=== PATIENT | female | born 1995 | race Caucasian/White ===

== ENCOUNTER 2020-02-18 11:40 | Inpatient (IN) | payer BC, OTHER ==
[2020-04-25] MEDS ORDERED: NS w/ Oxytocin 10 units 500 ML ONE (06:38)
[2020-04-25] MEDS ORDERED: HYDROcodone/Acetaminophen 5/325 mg Tablet PO PRN ×2 (06:41)
[2020-04-25] MEDS ORDERED: NS / Oxytocin 40 units/1000ml 1,000 ML IV PRN (06:41)
[2020-04-25] MEDS ORDERED: Diphenoxylate HCl/Atropine Tablet PO PRN ×2 (06:41)
[2020-04-25] MEDS ORDERED: hydrALAZINE 20 MG/ML VIAL SLOW IVP PRN (06:41)
[2020-04-25] MEDS ORDERED: Ibuprofen 800 MG TAB PO PRN (06:41)
[2020-04-25] MEDS ORDERED: Butorphanol Tartrate 1 MG/ML VIAL SLOW IVP PRN (06:41)
[2020-04-25] MEDS ORDERED: Misoprostol 200 MCG TAB PR PRN (06:41)
[2020-04-25] MEDS ORDERED: Ondansetron PF 4 MG/2 ML Vial IVP PRN ×2 (06:41→09:26)
[2020-04-25] MEDS ORDERED: Acetaminophen 500 MG TAB PO PRN (06:41)
[2020-04-25] MEDS ORDERED: Docusate 100 MG CAP PO PRN (06:41)
[2020-04-25] MEDS ORDERED: NS w/ Oxytocin 10 units 500 ML IV SCH (06:41)
[2020-04-25] MEDS ORDERED: Promethazine HCl 25 MG/ML VIAL IM PRN ×2 (06:41→09:26)
[2020-04-25] MEDS ORDERED: Lidocaine 1% (PF) 30 ML VIAL SC PRN (06:41)
[2020-04-25 06:42] VITALS: BMI 51.3
[2020-04-25] MEDS: Lactated Ringer's 1,000 ML IV SCH ×4 (06:50→22:56)
[2020-04-25 07:21] LABS: Hemoglobin 12.2 g/dL (12.0-16.0); Mean Corpuscular HGB CONC 34.3 g/dL (32.0-36.0); Mean Platelet Volume 8.7 fL (7.4-10.4); Platelet Count 213 thou/uL (130-400); RBC Distribution Width 12.3 % (11.5-14.5); White Blood Cell (WBC) Count 13.1 thou/uL (4.8-10.8)
[2020-04-25] MEDS: NS w/ Oxytocin 10 units 500 ML IV SCH (07:57)
[2020-04-25 08:01] LABS: HBSAg Index 0.13 S/CO (0-0.99); HIV (1/2) Antibody/Antigen Non-Reactive (NonReactive); HIV 1/2 INDEX 0.06 S/CO (<1.00); Hep B Surf Ag Non-Reactive S/CO (NonReactive); Syphilis Antibody Nonreactive (Nonreactive); Syphilis Antibody Index 0.04 S/CO (<1.00 Non-Reactive)
[2020-04-25] MEDS ORDERED: Fentanyl 4 mcg/Bup 0.1% Cadd 100 ML ONE ×3 (08:46→20:48)
[2020-04-25] MEDS ORDERED: Bupivacaine/Epinephrine 0.25% 30 ML VIAL ONE (09:17)
[2020-04-25] MEDS ORDERED: Lactated Ringer's 500 ML IV PRN (09:26)
[2020-04-25] MEDS ORDERED: diphenhydrAMINE 50 MG/ML VIAL IVP PRN (09:26)
[2020-04-25] MEDS ORDERED: EPHEDRINE 25 MG/5 ML SYRINGE SLOW IVP PRN (09:26)
[2020-04-25] MEDS ORDERED: Naloxone HCl 0.4 mg/ml Vial IVP PRN ×2 (09:26)
[2020-04-25] MEDS ORDERED: Acetaminophen 325 MG TAB PO PRN (09:26)
[2020-04-25] MEDS ORDERED: Communication Order-Pharmacy FS SCH (09:30)
[2020-04-25] MEDS: Fentanyl 4 mcg/Bupivacaine 0.1% Cassette 100 ML EPIDURAL SCH ×2 (15:02→20:56)
[2020-04-26] MEDS ORDERED: Fentanyl 4 mcg/Bup 0.1% Cadd 100 ML ONE (04:06)
[2020-04-26] MEDS: Fentanyl 4 mcg/Bupivacaine 0.1% Cassette 100 ML EPIDURAL SCH (04:09)
[2020-04-26] MEDS ORDERED: Zolpidem Tartrate 5 MG TAB PO PRN ×2 (05:17→05:28)
[2020-04-26] MEDS ORDERED: Benzocaine-Menthol 82.5 ML CAN TOP PRN (05:17)
[2020-04-26] MEDS ORDERED: Misoprostol 200 MCG TAB VAG PRN (05:17)
[2020-04-26] MEDS ORDERED: hydrALAZINE 20 MG/ML VIAL SLOW IVP PRN (05:17)
[2020-04-26] MEDS ORDERED: Bisacodyl 10 MG SUPP PR PRN (05:17)
[2020-04-26] MEDS ORDERED: Milk Of Magnesia 30 ML UDCUP PO PRN (05:17)
[2020-04-26] MEDS ORDERED: Ondansetron PF 4 MG/2 ML Vial IVP PRN (05:17)
[2020-04-26] MEDS ORDERED: Lanolin Ointment 7 GM TUBE TOP PRN (05:17)
[2020-04-26] MEDS ORDERED: Preparation H Ointment 28 GM TUBE PR PRN (05:17)
[2020-04-26] MEDS ORDERED: Acetaminophen/Codeine 30-300mg Tablet PO PRN ×2 (05:17→05:27)
[2020-04-26] MEDS ORDERED: diphenhydrAMINE 25 MG CAP PO PRN (05:17)
[2020-04-26] MEDS ORDERED: Naproxen 500 MG TAB PO PRN (05:22)
[2020-04-26] MEDS ORDERED: NS / Oxytocin 40 units/1000ml 1,000 ML IV SCH (05:30)
[2020-04-26] MEDS: Docusate Calcium (SURFAK) 240 MG CAP PO SCH ×2 (08:20→20:26)
[2020-04-26] MEDS: Prenatal Vitamin 1 TAB PO SCH (08:20)
[2020-04-26] MEDS ORDERED: Adacel (T-DAP) 0.5 ML SYRINGE IM ONE (09:00)
[2020-04-26] MEDS: Acetaminophen/Codeine 30-300mg Tablet PO PRN ×3 (10:19→22:30)
[2020-04-26] MEDS: NS w/ Oxytocin 10 units 500 ML IV SCH (10:30)
[2020-04-26] MEDS: Lactated Ringer's 1,000 ML IV SCH (10:30)
[2020-04-26] MEDS: Ferrous Sulfate 325 MG TAB PO SCH ×2 (10:30→16:22)
[2020-04-27] MEDS: Acetaminophen/Codeine 30-300mg Tablet PO PRN (05:12)
[2020-04-27 05:37] LABS: Hemoglobin 10.6 g/dL (12.0-16.0); Mean Corpuscular HGB CONC 33.5 g/dL (32.0-36.0); Mean Corpuscular Hemoglobin 32.4 pg (27.0-31.0); Mean Corpuscular Volume 96.7 fL (78.0-98.0); Mean Platelet Volume 7.9 fL (7.4-10.4); Platelet Count 190 thou/uL (130-400); RBC Distribution Width 12.4 % (11.5-14.5); Red Blood Cell (RBC) Count 3.27 mill/uL (4.20-5.40); White Blood Cell (WBC) Count 12.8 thou/uL (4.8-10.8)
[2020-04-27] MEDS: Ferrous Sulfate 325 MG TAB PO SCH ×2 (07:23→16:59)
[2020-04-27] MEDS: Docusate Calcium (SURFAK) 240 MG CAP PO SCH ×2 (09:04→21:29)
[2020-04-27] MEDS: Prenatal Vitamin 1 TAB PO SCH (09:04)
[2020-04-28] MEDS: Acetaminophen/Codeine 30-300mg Tablet PO PRN (03:04)
[2020-04-28 09:10] VITALS: BP 132/81; TEMP 97.5
[2020-04-28] MEDS: Ferrous Sulfate 325 MG TAB PO SCH (09:20)
[2020-04-28] MEDS: Prenatal Vitamin 1 TAB PO SCH (09:33)
[2020-04-28] MEDS: Docusate Calcium (SURFAK) 240 MG CAP PO SCH (09:33)
== END 2020-04-28 15:30 | disposition home or self-care (01) | DRG 806 ==
LOC: EDSTATUS 14:32 → L&D 04-25 05:52 → 3SW 04-26 07:54
PROVIDERS: ADMIT Obstetrics & Gynecology; ATTEND Obstetrics & Gynecology
PROC: 10907ZC Drainage of Amniotic Fluid, Therapeutic from Products of Conception, Via Natural or Artificial Opening (ICD-10-PCS; principal; 2020-04-26)
PROC: 10D07Z6 Extraction of Products of Conception, Vacuum, Via Natural or Artificial Opening (ICD-10-PCS; 2020-04-26)
PROC: 0KQM0ZZ Repair Perineum Muscle, Open Approach (ICD-10-PCS; 2020-04-26)
PROC: 3E033VJ Introduction of Other Hormone into Peripheral Vein, Percutaneous Approach (ICD-10-PCS; 2020-04-26)
PROC: 3E0P7VZ Introduction of Hormone into Female Reproductive, Via Natural or Artificial Opening (ICD-10-PCS; 2020-04-26)
DX: O40.3XX0 Polyhydramnios, third trimester, not applicable or unspecified (principal); O99.354 Diseases of the nervous system complicating childbirth; Z37.0 Single live birth; O24.425 Gestational diabetes mellitus in childbirth, controlled by oral hypoglycemic drugs; O99.284 Endocrine, nutritional and metabolic diseases complicating childbirth; E28.2 Polycystic ovarian syndrome; O99.344 Other mental disorders complicating childbirth; F32.9 Major depressive disorder, single episode, unspecified; F41.9 Anxiety disorder, unspecified; O99.62 Diseases of the digestive system complicating childbirth; O70.1 Second degree perineal laceration during delivery; Z3A.39 39 weeks gestation of pregnancy; G43.909 Migraine, unspecified, not intractable, without status migrainosus; K21.9 Gastro-esophageal reflux disease without esophagitis
CPT/HCPCS: 36415; 51702; 85027; 86780; 86850; 86900; 86901; 87340; 87389; 87635; J2001; J2590; U0003

== ENCOUNTER 2020-04-01 16:18 | Emergency (ER) | payer BC ==
--- NOTE | 2020-04-01 17:27 | ULT ---
Venous duplex sonogram bilateral lower extremity HISTORY: Lateral leg pain and edema. FINDINGS: Each common femoral vein and greater saphenous junction were evaluated along with each femo ral, deep femoral, popliteal, and posterior tibial vein. There is good color and spectral Doppler flow, compression, and augmentation. IMPRESSION : Normal exam.
== END 2020-04-01 18:00 | disposition home or self-care (01) ==
LOC: ERS 16:18
DX: O99.89 Other specified diseases and conditions complicating pregnancy, childbirth and the puerperium (principal); M79.662 Pain in left lower leg; M79.661 Pain in right lower leg; R60.0 Localized edema; O24.419 Gestational diabetes mellitus in pregnancy, unspecified control; Z3A.36 36 weeks gestation of pregnancy; Z79.84 Long term (current) use of oral hypoglycemic drugs
CPT/HCPCS: 93970

== ENCOUNTER 2021-03-24 19:13 | Emergency (ER) | payer BC ==
[2021-03-24] MEDS ORDERED: Ondansetron PF 4 MG/2 ML Vial ONE (19:38)
[2021-03-24 20:18] LABS: #Lymphocytes 1.5 thou/uL (1.20-3.40); #Monocytes 0.3 thou/uL (0.11-0.59); #Neutrophils 2.8 thou/uL (1.40-6.50); %Basophils 0.6 % (0.0-1.0); %Eosinophils 0.2 % (0.0-10.0); %Lymphocytes 32.7 % (21.0-51.0); %Monocytes 5.5 % (0.0-10.0); %Neutrophils 61.1 % (42.0-75.0); Hemoglobin 13.5 g/dL (12.0-16.0); Mean Corpuscular HGB CONC 33.9 g/dL (32.0-36.0); Mean Corpuscular Hemoglobin 30.9 pg (27.0-31.0); Mean Corpuscular Volume 91.1 fL (78.0-98.0); Mean Platelet Volume 7.7 fL (7.4-10.4); Platelet Count 159 thou/uL (130-400); RBC Distribution Width 11.2 % (11.5-14.5); Red Blood Cell (RBC) Count 4.39 mill/uL (4.20-5.40); White Blood Cell (WBC) Count 4.6 thou/uL (4.8-10.8)
[2021-03-24 20:25] LABS: ALT (SGPT) 52 U/L (8-55); AST (SGOT) 54 U/L (5-34); Albumin 3.9 g/dL (3.5-5.0); Alkaline Phosphatase 85 U/L (40-110); Anion Gap 15 mmol/L (10-20); BUN (Urea Nitrogen) 9 mg/dL (7.0-18.7); Bilirubin, Total 0.4 mg/dL (0.2-1.2); Calc. Creatinine Clearance 0 mL/min (70-130); Calcium 8.7 mg/dL (7.8-10.44); Carbon Dioxide 24 mmol/L (22-29); Chloride 104 mmol/L (98-107); Globulin 3.6 g/dL (2.4-3.5); Glucose 118 mg/dL (70-105); Lipase 22 U/L (8-78); Potassium 3.7 mmol/L (3.5-5.1); Protein, Total 7.5 g/dL (6.0-8.3); Sodium 139 mmol/L (136-145)
[2021-03-24 20:51] LABS: Bacteria/HPF 2+ HPF (None Seen); Bilirubin Negative (Negative); Blood, Urine Negative (Negative); Clarity Turbid (Clear); Glucose, Urine (Dipstick) Normal (Negative); Ketone, Urine Trace mg/dL (Negative); Leukocyte 25 Leu/uL (Negative); Mucous/LPF Rare LPF (<2+); Nitrite Negative (Negative); Pregnancy Test - Urine (BHCG) Negative (Negative); Pregu Control Background? CLEAR/WHITE (CLR/WHITE); Pregu Control Bar Appear? YES (CONTROL BAR); Protein, Urine (Dipstick) 100 mg/dL (Neg-Trace); Renal Epithelial 0-3 HPF (None Seen); Specific Gravity 1.044 (1.002-1.036); Specific Gravity, Urine 1.044 (1.002-1.036)
[2021-03-24] MEDS ORDERED: Metoclopramide HCl 10 MG/2 ML VIAL ONE (21:14)
== END 2021-03-24 22:30 | disposition home or self-care (01) ==
LOC: ERS 19:13
DX: U07.1 COVID-19 (principal); N39.0 Urinary tract infection, site not specified
CPT/HCPCS: 71045; 80053; 81003; 81015; 81025; 83690; 85025; 87086; 93005; 96365; 96375; J2405; J2765

== ENCOUNTER 2021-08-21 11:10 | Outpatient (CLI) | payer BC | END 2021-08-21 11:11 | disposition home or self-care (01) | LOC: BICRAD 11:10 | PROVIDERS: ATTEND Family Medicine | DX: M25.562 Pain in left knee (principal) ==

== ENCOUNTER 2022-04-25 17:29 | Observation (INO) | payer BC ==
[~2022-04-25 17:29] MED LIST: Iopamidol-370 76% 500 ML 1 ML ONE
[2022-04-25 19:05] LABS: #Eosinphils 0.1 thou/uL (0.0-0.7); #Lymphocytes 3.2 thou/uL (1.20-3.40); #Monocytes 0.4 thou/uL (0.11-0.59); #Neutrophils 9.4 thou/uL (1.40-6.50); %Basophils 0.2 % (0.0-1.0); %Lymphocytes 24.5 % (21.0-51.0); %Monocytes 2.9 % (0.0-10.0); %Neutrophils 71.4 % (42.0-75.0); Hemoglobin 13.1 g/dL (12.0-16.0); Mean Corpuscular HGB CONC 35.4 g/dL (32.0-36.0); Mean Corpuscular Hemoglobin 32.4 pg (27.0-31.0); Mean Corpuscular Volume 91.6 fL (78.0-98.0); Mean Platelet Volume 6.5 fL (7.4-10.4); Platelet Count 382 thou/uL (130-400); RBC Distribution Width 11.1 % (11.5-14.5); Red Blood Cell (RBC) Count 4.06 mill/uL (4.20-5.40); White Blood Cell (WBC) Count 13.2 thou/uL (4.8-10.8)
[2022-04-25 19:23] LABS: BHCG - Serum Negative (NEGATIVE); Pregs Control Background? CLEAR/WHITE (CLR/WHITE); Pregs Control Bar Appear? YES (CONTROL BAR)
[2022-04-25 19:30] LABS: ALT (SGPT) 43 U/L (8-55); AST (SGOT) 33 U/L (5-34); Albumin 4.2 g/dL (3.5-5.0); Alkaline Phosphatase 169 U/L (40-110); Anion Gap 13 mmol/L (10-20); BUN (Urea Nitrogen) 8 mg/dL (7.0-18.7); Bilirubin, Total 0.6 mg/dL (0.2-1.2); Calc. Creatinine Clearance 0 mL/min (70-130); Calcium 9.6 mg/dL (7.8-10.44); Carbon Dioxide 26 mmol/L (22-29); Chloride 103 mmol/L (98-107); Globulin 3.8 g/dL (2.4-3.5); Glucose 90 mg/dL (70-105); Lipase 10 U/L (8-78); Potassium 4.2 mmol/L (3.5-5.1); Sodium 138 mmol/L (136-145)
[2022-04-25 21:18] LABS: Bilirubin Negative (Negative); Blood, Urine 3+ (Negative); Clarity Turbid (Clear); Glucose, Urine (Dipstick) Normal (Negative); Ketone, Urine 40 mg/dL (Negative); Leukocyte 250 Leu/uL (Negative); Nitrite Negative (Negative); Protein, Urine (Dipstick) 20 mg/dL (Neg-Trace); RBC/HPF Greater than 50 HPF (0-3); Specific Gravity, Urine 1.028 (1.002-1.036)
[2022-04-25 21:26] LABS: Bacteria/HPF 1+ HPF (None Seen); Mucous/LPF 2+ LPF (<2+)
[2022-04-25] MEDS ORDERED: Morphine 4 MG/ML VIAL ONE (22:15)
[2022-04-25] MEDS ORDERED: Ondansetron PF 4 MG/2 ML Vial ONE (22:15)
[2022-04-25] MEDS ORDERED: Piperacillin/Tazobactam 3.375 GM VIAL ONE (22:15)
[2022-04-25] MEDS: Sodium Chloride 0.9% 1,000 ML IV SCH (23:20)
[2022-04-25 23:25] VITALS: BMI 48.6
[2022-04-26 00:06] LABS: SARS-CoV-2 NAA Rapid Test Not Detected (NotDetected)
[2022-04-26] MEDS ORDERED: Morphine 2 MG/ML VIAL SLOW IVP PRN (01:55)
[2022-04-26] MEDS ORDERED: Morphine 4 MG/ML VIAL SLOW IVP PRN (01:55)
[2022-04-26] MEDS ORDERED: Ondansetron PF 4 MG/2 ML Vial IVP PRN ×2 (01:56→10:39)
[2022-04-26] MEDS: Piperacillin/Tazobactam 3.375 GM in Sodium Chloride 0.9% 100 ML IVPB SCH ×3 (02:26→15:00)
[2022-04-26] MEDS: Sodium Chloride 0.9% 1,000 ML IV SCH ×2 (02:26→09:58)
[2022-04-26 06:25] LABS: ALT (SGPT) 44 U/L (8-55); AST (SGOT) 43 U/L (5-34); Albumin 3.6 g/dL (3.5-5.0); Alkaline Phosphatase 180 U/L (40-110); Anion Gap 10 mmol/L (10-20); BUN (Urea Nitrogen) 8 mg/dL (7.0-18.7); Bilirubin, Total 0.8 mg/dL (0.2-1.2); Calc. Creatinine Clearance 172 mL/min (70-130); Calcium 8.6 mg/dL (7.8-10.44); Carbon Dioxide 28 mmol/L (22-29); Chloride 105 mmol/L (98-107); Globulin 3.2 g/dL (2.4-3.5); Glucose 80 mg/dL (70-105); Potassium 3.8 mmol/L (3.5-5.1); Protein, Total 6.8 g/dL (6.0-8.3); Sodium 139 mmol/L (136-145)
[2022-04-26] MEDS ORDERED: Bupivacaine PF 0.5% 30 ML VIAL ONE (06:40)
[2022-04-26] MEDS ORDERED: Lidocaine 1% w/Epinephrine 1:100K 20 ML VIAL ONE (06:40)
[2022-04-26] MEDS ORDERED: fentaNYL Citrate/PF 100 MCG/2 ML SYRINGE ONE (06:51)
[2022-04-26] MEDS ORDERED: Midazolam HCl 2 mg/2 ml Vial ONE (06:51)
[2022-04-26] MEDS ORDERED: Iopamidol 30 ML ONE (07:10)
[2022-04-26] MEDS ORDERED: Sodium Chloride 0.9% 100 ML ONE (07:19)
[2022-04-26] MEDS ORDERED: Piperacillin/Tazobactam 3.375 GM VIAL ONE (07:19)
[2022-04-26] MEDS ORDERED: PROPOFOL 200 MG/20 ML VIAL ONE (07:33)
[2022-04-26] MEDS ORDERED: Lidocaine 1% PF 5 ML VIAL ONE (07:33)
[2022-04-26] MEDS ORDERED: Ketorolac Tromethamine 30 MG/ML VIAL ONE (07:33)
[2022-04-26] MEDS ORDERED: Rocuronium Bromide 10 MG/ML (10ML VIAL) ONE (07:33)
[2022-04-26] MEDS ORDERED: Ondansetron PF 4 MG/2 ML Vial ONE (07:33)
[2022-04-26] MEDS ORDERED: Glycopyrrolate 0.2 MG/ML 5 ML SYRINGE ONE (07:33)
[2022-04-26] MEDS ORDERED: Non-Formulary Medication 1 EACH PO PRN (09:29)
[2022-04-26] MEDS ORDERED: Ondansetron HCl/PF 4 MG/2 ML Vial IVP PRN (09:30)
[2022-04-26] MEDS ORDERED: Promethazine HCl 25 MG/ML VIAL IM/IV PRN (09:30)
[2022-04-26] MEDS ORDERED: Fentanyl 100 MCG/2 ML VIAL ONE ×2 (09:35→10:02)
[2022-04-26] MEDS ORDERED: Acetaminophen 325 MG TAB PO PRN (10:38)
[2022-04-26] MEDS ORDERED: Ondansetron ODT 4 MG TAB PO PRN (10:39)
[2022-04-26] MEDS ORDERED: Piperacillin/Tazobactam 3.375 GM in Sodium Chloride 0.9% 100 ML IVPB SCH ×2 (10:45→11:30)
[2022-04-26] MEDS ORDERED: Polyethylene Glycol 3350 17 GM Packet PO SCH (12:00)
[2022-04-26] MEDS: HYDROcodone/Acetaminophen 5/325 mg Tablet PO PRN ×3 (14:56→22:25)
[2022-04-26] MEDS: Docusate 100 MG CAP PO SCH (20:22)
[2022-04-27] MEDS: Piperacillin/Tazobactam 3.375 GM in Sodium Chloride 0.9% 100 ML IVPB SCH ×2 (00:51→12:03)
[2022-04-27] MEDS: HYDROcodone/Acetaminophen 5/325 mg Tablet PO PRN (05:08)
[2022-04-27 08:42] LABS: #Lymphocytes 1.7 thou/uL (1.20-3.40); #Monocytes 0.6 thou/uL (0.11-0.59); #Neutrophils 13.3 thou/uL (1.40-6.50); %Eosinophils 0.1 % (0.0-10.0); %Lymphocytes 10.6 % (21.0-51.0); %Monocytes 3.7 % (0.0-10.0); %Neutrophils 85.6 % (42.0-75.0); Hemoglobin 11.8 g/dL (12.0-16.0); Mean Corpuscular HGB CONC 34.8 g/dL (32.0-36.0); Mean Corpuscular Hemoglobin 32.9 pg (27.0-31.0); Mean Corpuscular Volume 94.6 fL (78.0-98.0); Mean Platelet Volume 6.8 fL (7.4-10.4); Platelet Count 332 thou/uL (130-400); RBC Distribution Width 11.1 % (11.5-14.5); Red Blood Cell (RBC) Count 3.59 mill/uL (4.20-5.40); White Blood Cell (WBC) Count 15.5 thou/uL (4.8-10.8)
[2022-04-27 09:00] LABS: ALT (SGPT) 48 U/L (8-55); AST (SGOT) 35 U/L (5-34); Albumin 3.4 g/dL (3.5-5.0); Alkaline Phosphatase 126 U/L (40-110); Anion Gap 14 mmol/L (10-20); BUN (Urea Nitrogen) 8 mg/dL (7.0-18.7); Bilirubin, Total 0.3 mg/dL (0.2-1.2); Calc. Creatinine Clearance 189 mL/min (70-130); Calcium 8.1 mg/dL (7.8-10.44); Carbon Dioxide 23 mmol/L (22-29); Chloride 105 mmol/L (98-107); Globulin 3.1 g/dL (2.4-3.5); Glucose 176 mg/dL (70-105); Potassium 3.7 mmol/L (3.5-5.1); Protein, Total 6.5 g/dL (6.0-8.3); Sodium 138 mmol/L (136-145)
[2022-04-27] MEDS ORDERED: Polyethylene Glycol 3350 17 GM Packet PO SCH (09:00)
[2022-04-27 12:02] VITALS: BP 116/78; TEMP 98.1
[2022-04-27] MEDS: Docusate 100 MG CAP PO SCH (12:03)
== END 2022-04-27 13:00 | disposition home or self-care (01) ==
LOC: ERS 17:29 → SURG B 22:22
PROVIDERS: ADMIT Surgery; ATTEND Surgery
PROC: 0FT44ZZ Resection of Gallbladder, Percutaneous Endoscopic Approach (ICD-10-PCS; principal; 2022-04-26)
PROC: BF121ZZ Fluoroscopy of Gallbladder using Low Osmolar Contrast (ICD-10-PCS; 2022-04-26)
DX: K80.12 Calculus of gallbladder with acute and chronic cholecystitis without obstruction (principal); K82.8 Other specified diseases of gallbladder; K59.00 Constipation, unspecified; Z79.3 Long term (current) use of hormonal contraceptives; Z88.6 Allergy status to analgesic agent; Z91.048 Other nonmedicinal substance allergy status; Z20.822 Contact with and (suspected) exposure to COVID-19
CPT/HCPCS: 36415; 47532; 74177; 76705; 80053; 81003; 81015; 83605; 83690; 84703; 85025; 87040; 87070; 87205; 88304; 93005; 96365; 96366; 96374; 96375; 96376; C1713; G0378; J1610; J1885; J2250; J2270; J2405; J2543; J2704; J3010; J3490; J7050; Q9967; S0020; U0002

== ENCOUNTER 2023-01-10 11:31 | Outpatient (CLI) | payer BC, OTHER | END 2023-01-10 11:32 | disposition home or self-care (01) | LOC: DTY/OP 11:31 | PROVIDERS: ATTEND Family Medicine | DX: Z71.3 Dietary counseling and surveillance (principal) | CPT/HCPCS: 97802 ==

== ENCOUNTER 2023-02-19 09:11 | Emergency (ER) | payer OTHER | END 2023-02-19 11:37 | disposition home or self-care (01) | LOC: ERS 09:11 | DX: O99.891 Other specified diseases and conditions complicating pregnancy (principal); S16.1XXA Strain of muscle, fascia and tendon at neck level, initial encounter; V49.40XA Driver injured in collision with unspecified motor vehicles in traffic accident, initial encounter; Z3A.10 10 weeks gestation of pregnancy | CPT/HCPCS: 36415; 76801; 86900; 86901 ==